=== PATIENT | female | born 2000 | race Caucasian/White ===

== ENCOUNTER 2018-03-26 08:49 | Emergency (ER) | payer MEDICAID ==
[~2018-03-26] VITALS: Ht 167.6 cm; Wt 42.7 kg
[~2018-03-26 08:49] MED LIST: ARIP10TA9 PO; CEPH-357 PO; HYDR-3686 PO; MIRT15TA PO
[2018-03-26] MEDS ORDERED: acetaminophen 325mg tablet PO ONE (09:10)
[2018-03-26] MEDS ORDERED: dicyclomine 10 MG capsule PO ONE (09:10)
[2018-03-26 09:50] LABS: CLARITY,URINE CLEAR (Clear); COLOR,URINE YELLOW (Yellow); GLUCOSE, URINE NEGATIVE (Neg); KETONES,URINE NEGATIVE (Neg); LEUKOCYTE ESTERASE ,URINE NEGATIVE (Neg); NITRITES, URINE NEGATIVE (Neg); OCCULT BLOOD,URINE SMALL (Neg); PH,URINE 6.5 (4.8-8.0); PROTEIN,URINE NEGATIVE (Neg); UROBILINOGEN,URINE 0.2 E.U/dL (0.2-1.0)
[2018-03-26 09:52] LABS: URINE HCG NEGATIVE (NEG)
[2018-03-26 09:54] LABS: UA COLLECTION TYPE CLN CATCH MIDSTREAM
[2018-03-26 09:56] LABS: BACTERIA,URINE FEW /HPF (Neg); MUCUS STRANDS FEW /LPF (Neg); SQUAMOUS EPITHELIAL CELL,UR FEW /LPF (FEW); WBC,URINE 0-4 /HPF (0-4)
[2018-03-26 10:11] VITALS: BP 120/70
== END 2018-03-26 10:12 | disposition home or self-care (01) ==
LOC: ER 08:50
DX: R10.31 Right lower quadrant pain (principal); R10.32 Left lower quadrant pain; G89.29 Other chronic pain; F12.90 Cannabis use, unspecified, uncomplicated; F15.90 Other stimulant use, unspecified, uncomplicated; Z79.899 Other long term (current) drug therapy
CPT/HCPCS: 76856; 81001; 81025; 99285

== ENCOUNTER 2019-05-23 14:16 | Emergency (ER) | payer MEDICAID ==
[~2019-05-23] VITALS: Ht 167.6 cm; Wt 38.0 kg
[2019-05-23 14:18] VITALS: BP 121/66
[2019-05-23] MEDS ORDERED: levetiracetam-NS 1000mg/100ml 100 ML IV ONE (14:40)
[2019-05-23 15:09] LABS: BASOPHILS % (AUTO) 0.4 % (0-1); EOSINOPHILS # (AUTO) 0.1 X10'3 (0-0.9); EOSINOPHILS % (AUTO) 1.6 % (0-6); HEMATOCRIT 40.2 % (35.0-45.0); HEMOGLOBIN 13.5 g/dl (12.0-16.0); LYMPHOCYTES # (AUTO) 2.3 X10'3 (1.1-4.8); LYMPHOCYTES % (AUTO) 26.5 % (21-51); MEAN CORPUSCULAR HEMOGLOBIN 29.7 PG (27.0-31.0); MEAN CORPUSCULAR HGB CONC 33.5 g/dL (33.0-36.5); MEAN CORPUSCULAR VOLUME 88.6 FL (78-98); MEAN PLATELET VOLUME 7.3 FL (7.4-10.4); MONOCYTES # (AUTO) 0.4 X10'3 (0-0.9); MONOCYTES % (AUTO) 4.9 % (2-12); NEUTROPHILS # (AUTO) 5.7 X10'3 (1.8-7.7); NEUTROPHILS % (AUTO) 66.6 % (42-75); PLATELET COUNT 289 X10'3 (140-440); RED BLOOD COUNT 4.53 X10'6 (4.20-5.60); RED CELL DISTRIBUTION WIDTH 13.1 % (11.5-14.5); WHITE BLOOD COUNT 8.6 X10'3 (4.5-11.0)
[2019-05-23 15:21] LABS: ALANINE AMINOTRANSFERASE 19 U/L (12-78); ALBUMIN 4.3 G/DL (3.4-5.0); ALBUMIN/GLOBULIN RATIO 1.3 (1.1-1.5); ALKALINE PHOSPHATASE 60 IU/L (20-180); ANION GAP 10 (8-16); ASPARTATE AMINO TRANSFERASE 17 U/L (10-37); BILIRUBIN,TOTAL 0.3 MG/DL (0.1-1.0); BLOOD UREA NITROGEN 11 MG/DL (7-18); BUN/CREATININE RATIO 13.8 (6.6-38.0); CALCIUM 8.5 MG/DL (8.5-10.1); CHLORIDE 107 MMOL/L (99-107); ETHANOL < 0.010 GM/DL (0.0-0.010); GLUCOSE 93 MG/DL (70-104); MAGNESIUM 1.8 MG/DL (1.5-2.4); POTASSIUM 3.5 MMOL/L (3.5-5.1); SODIUM 142 MMOL/L (135-145); TOTAL CARBON DIOXIDE 24.9 MMOL/L (24-32); TOTAL PROTEIN 7.5 G/DL (6.4-8.2); eGFR > 90 ML/MIN
[2019-05-23 15:42] LABS: CLARITY,URINE CLEAR (Clear); COLOR,URINE YELLOW (Yellow); GLUCOSE, URINE NEGATIVE (Neg); KETONES,URINE NEGATIVE (Neg); LEUKOCYTE ESTERASE ,URINE NEGATIVE (Neg); NITRITES, URINE NEGATIVE (Neg); OCCULT BLOOD,URINE NEGATIVE (Neg); PH,URINE 5.5 (4.8-8.0); PROTEIN,URINE NEGATIVE (Neg); UROBILINOGEN,URINE 0.2 E.U/dL (0.2-1.0)
[2019-05-23 15:43] LABS: URINE HCG NEGATIVE (NEG)
[2019-05-23 15:45] LABS: UA COLLECTION TYPE CLN CATCH MIDSTREAM
[2019-05-23 15:47] LABS: URINE AMPHETAMINE SCREEN NEGATIVE (Neg); URINE BARBITUATE SCREEN NEGATIVE (Neg); URINE BENZODIAZEPINES SCREEN NEGATIVE (Neg); URINE CANNABINOID SCREEN POSITIVE (Neg); URINE COCAINE SCREEN NEGATIVE (Neg); URINE METHADONE SCREEN NEGATIVE (Neg); URINE OPIATE SCREEN NEGATIVE (Neg); URINE PHENCYCLIDINE SCREEN NEGATIVE (Neg)
[2019-05-23] MEDS ORDERED: KEP500T PO (15:53)
[2019-05-23] MEDS ORDERED: levetiracetam inj 1,000 MG in normal saline 100ml IV soln 90 ML IV SCH (20:00)
== END 2019-05-23 16:17 | disposition home or self-care (01) ==
LOC: ER 14:17
DX: G40.909 Epilepsy, unspecified, not intractable, without status epilepticus (principal); F12.90 Cannabis use, unspecified, uncomplicated; F15.90 Other stimulant use, unspecified, uncomplicated; F17.200 Nicotine dependence, unspecified, uncomplicated; Z79.899 Other long term (current) drug therapy
CPT/HCPCS: 36415; 70450; 71045; 80053; 80305; 80320; 81003; 81025; 83735; 84100; 85025; 93005; 96374; 99284; J1953

== ENCOUNTER 2020-03-27 11:27 | Emergency (ER) | payer MEDICAID ==
[~2020-03-27] VITALS: Ht 167.6 cm; Wt 43.2 kg
[~2020-03-27 11:27] MED LIST changes: +KEP500T PO
[2020-03-27] MEDS ORDERED: diphenhydrAMINE 50 mg/ml inj IM ONE (11:55)
[2020-03-27] MEDS ORDERED: proCHLORperazine 10 MG/2 ml inj IM ONE (11:55)
--- NOTE | 2020-03-27 12:03 | NUR ---
ASKED PT WHY SHE WAS SCREAMING. SHE SAID" THATS WHAT I DO WHEN I HAVE PAIN AND NOT MEDICATION FOR MY NAUSE". I EXPLAINED TO HER THAT SHE HAD SOME MEDICATION ORDERED, THAT WE WERE GETTING FOR HER, AND THAT SCREAMING WAS NOT HELPING HER OR OUR SITUATION. PT STATED " I HAVE AND ANXIETY ORDER YOU FUCKING BITCH, AND YOU SHOULD BE USED TO THIS AND CONTINUED TO SCREAM" "I ASKED HER IF SHE COULD PLEASE STOP SCREAMING AND ACT LIKE SHE WAS 19" PT. S HAD A HOLE LINE OF CUSING THAT INSUED. I WALKED AWAY FROM PT. I CLOSED HER DOORS IN BED 10
--- NOTE | 2020-03-27 12:20 | NUR ---
PT C/O NAUSEA AND AXITEY MEDICATED PER MD ORDERS WITH BENEDRYL AND COMPAZINE.
[2020-03-27 13:43] VITALS: BP 101/53
== END 2020-03-27 13:43 | disposition home or self-care (01) ==
LOC: ER 11:28
DX: F11.23 Opioid dependence with withdrawal (principal); R11.2 Nausea with vomiting, unspecified; F41.9 Anxiety disorder, unspecified; F12.90 Cannabis use, unspecified, uncomplicated; F15.90 Other stimulant use, unspecified, uncomplicated; Z72.89 Other problems related to lifestyle; Z86.69 Personal history of other diseases of the nervous system and sense organs; Z79.899 Other long term (current) drug therapy
CPT/HCPCS: 96372; 99284; J0780; J1200

== ENCOUNTER 2020-06-10 08:16 | Emergency (ER) | payer MEDICAID ==
[~2020-06-10] VITALS: Ht 167.6 cm; Wt 43.6 kg
[2020-06-10 08:19] VITALS: BP 105/60
[2020-06-10] MEDS ORDERED: normal saline 1000ML IV soln IVB ONE (08:25)
[2020-06-10] MEDS ORDERED: ondansetron/PF 4mg/2ml inj IV ONE (08:25)
[2020-06-10] MEDS ORDERED: ketorolac tromethamine 15mg/ml inj. IV ONE (08:30)
[2020-06-10 08:39] LABS: BASOPHILS % (AUTO) 0.3 % (0-1); EOSINOPHILS # (AUTO) 0.1 X10'3 (0-0.9); EOSINOPHILS % (AUTO) 0.8 % (0-6); HEMATOCRIT 40.3 % (35.0-45.0); HEMOGLOBIN 13.5 g/dl (12.0-16.0); LYMPHOCYTES # (AUTO) 1.3 X10'3 (1.1-4.8); LYMPHOCYTES % (AUTO) 12.9 % (21-51); MEAN CORPUSCULAR HEMOGLOBIN 29.9 PG (27.0-31.0); MEAN CORPUSCULAR HGB CONC 33.6 g/dL (33.0-36.5); MEAN CORPUSCULAR VOLUME 88.9 FL (78-98); MEAN PLATELET VOLUME 7.4 FL (7.4-10.4); MONOCYTES # (AUTO) 0.6 X10'3 (0-0.9); MONOCYTES % (AUTO) 5.3 % (2-12); NEUTROPHILS # (AUTO) 8.4 X10'3 (1.8-7.7); NEUTROPHILS % (AUTO) 80.7 % (42-75); PLATELET COUNT 286 X10'3 (140-440); RED BLOOD COUNT 4.53 X10'6 (4.20-5.60); RED CELL DISTRIBUTION WIDTH 12.7 % (11.5-14.5); WHITE BLOOD COUNT 10.5 X10'3 (4.5-11.0)
[2020-06-10 09:03] LABS: ALANINE AMINOTRANSFERASE 17 U/L (12-78); ALBUMIN 3.8 G/DL (3.4-5.0); ALBUMIN/GLOBULIN RATIO 1.2 (1.1-1.5); ALKALINE PHOSPHATASE 72 IU/L (46-116); ANION GAP 12 (8-16); ASPARTATE AMINO TRANSFERASE 17 U/L (10-37); BILIRUBIN,TOTAL 0.4 MG/DL (0.1-1.0); BLOOD UREA NITROGEN 12 MG/DL (7-18); BUN/CREATININE RATIO 15.2 (6.6-38.0); CALCIUM 9.4 MG/DL (8.5-10.1); CHLORIDE 102 MMOL/L (99-107); CREATININE 0.79 MG/DL (0.40-0.90); GLUCOSE 116 MG/DL (70-104); LIPASE 73 U/L (73-393); POTASSIUM 3.2 MMOL/L (3.5-5.1); SODIUM 140 MMOL/L (135-145); TOTAL CARBON DIOXIDE 26.3 MMOL/L (24-32); eGFR > 90 ML/MIN
--- NOTE | 2020-06-10 09:03 | NUR ---
MOTHER CALLED AND STATES THAT PATIENT HAD IMPLANT IN ARM FOR CONTROL THAT WAS RECALLED AND REMOVED 1.5 YEARS AGO. PATIENT WAS REGULARLY TAKING NORCO AT THAT TIME AND THEN RECENTLY PLACED ON SUBOXONE. MOTHER STATES SHE CONTINUES TO HAVE ABDOMINAL PAIN.
[2020-06-10] MEDS ORDERED: HYDROcodone/acetaminophen 10/325mg tab PO ONE (09:40)
[2020-06-10] MEDS ORDERED: ONDA4TAB6 PO (09:41)
[2020-06-10] MEDS ORDERED: HYDR-4353 PO (09:41)
== END 2020-06-10 10:44 | disposition home or self-care (01) ==
LOC: ER 08:16
DX: N83.209 Unspecified ovarian cyst, unspecified side (principal); F41.9 Anxiety disorder, unspecified; F12.90 Cannabis use, unspecified, uncomplicated; F15.90 Other stimulant use, unspecified, uncomplicated; Z86.69 Personal history of other diseases of the nervous system and sense organs; Z79.2 Long term (current) use of antibiotics; Z79.899 Other long term (current) drug therapy
CPT/HCPCS: 36415; 76830; 76856; 80053; 83690; 85025; 93976; 96361; 96374; 96375; 99284; J1885; J2405; J7030

== ENCOUNTER 2020-07-04 04:40 | Emergency (ER) | payer MEDICAID ==
[~2020-07-04] VITALS: Ht 167.6 cm; Wt 40.0 kg
[~2020-07-04 04:40] MED LIST changes: +ONDA4TAB6 PO
--- NOTE | 2020-07-04 04:41 | NUR ---
PT'S MOTHER-MIKKI- CALLED FOR AN UPDATE- LET PRIMARY RN KNOW-NUMBER IS [phone]
[2020-07-04] MEDS ORDERED: ketorolac trometh. 30mg/ml inj. IV ONE (04:50)
[2020-07-04] MEDS ORDERED: acetaminophen 325mg tablet PO ONE (04:50)
[2020-07-04] MEDS ORDERED: metoclopramide 5 mg/ml inj IV ONE (04:50)
[2020-07-04 05:07] LABS: CLARITY,URINE CLEAR (Clear); COLOR,URINE YELLOW (Yellow); GLUCOSE, URINE NEGATIVE (Neg); KETONES,URINE NEGATIVE (Neg); LEUKOCYTE ESTERASE ,URINE NEGATIVE (Neg); NITRITES, URINE NEGATIVE (Neg); OCCULT BLOOD,URINE TRACE-INTACT (Neg); PROTEIN,URINE NEGATIVE (Neg); UROBILINOGEN,URINE 0.2 E.U/dL (0.2-1.0)
[2020-07-04 05:08] LABS: UA COLLECTION TYPE CLN CATCH MIDSTREAM; URINE HCG NEGATIVE (NEG)
[2020-07-04 05:14] LABS: SQUAMOUS EPITHELIAL CELL,UR MODERATE /LPF (FEW)
[2020-07-04 05:15] LABS: BACTERIA,URINE FEW /HPF (Neg); RBC,URINE 0-2 /HPF (0-2); WBC,URINE 0-4 /HPF (0-4)
[2020-07-04 05:23] LABS: URINE AMPHETAMINE SCREEN NEGATIVE (Neg); URINE BARBITUATE SCREEN NEGATIVE (Neg); URINE BENZODIAZEPINES SCREEN POSITIVE (Neg); URINE CANNABINOID SCREEN POSITIVE (Neg); URINE COCAINE SCREEN NEGATIVE (Neg); URINE METHADONE SCREEN NEGATIVE (Neg); URINE OPIATE SCREEN NEGATIVE (Neg); URINE PHENCYCLIDINE SCREEN NEGATIVE (Neg)
[2020-07-04 05:40] LABS: BASOPHILS % (AUTO) 0.4 % (0-1); EOSINOPHILS # (AUTO) 0.3 X10'3 (0-0.9); EOSINOPHILS % (AUTO) 3.3 % (0-6); HEMATOCRIT 39.1 % (35.0-45.0); HEMOGLOBIN 12.9 g/dl (12.0-16.0); LYMPHOCYTES # (AUTO) 2.7 X10'3 (1.1-4.8); LYMPHOCYTES % (AUTO) 34.6 % (21-51); MEAN CORPUSCULAR HEMOGLOBIN 29.7 PG (27.0-31.0); MEAN CORPUSCULAR HGB CONC 33.1 g/dL (33.0-36.5); MEAN CORPUSCULAR VOLUME 89.8 FL (78-98); MEAN PLATELET VOLUME 7.5 FL (7.4-10.4); MONOCYTES # (AUTO) 0.6 X10'3 (0-0.9); MONOCYTES % (AUTO) 7.5 % (2-12); NEUTROPHILS # (AUTO) 4.2 X10'3 (1.8-7.7); NEUTROPHILS % (AUTO) 54.2 % (42-75); PLATELET COUNT 260 X10'3 (140-440); RED BLOOD COUNT 4.35 X10'6 (4.20-5.60); RED CELL DISTRIBUTION WIDTH 13.1 % (11.5-14.5); WHITE BLOOD COUNT 7.7 X10'3 (4.5-11.0)
[2020-07-04 05:51] LABS: ALANINE AMINOTRANSFERASE 17 U/L (12-78); ALBUMIN 3.8 G/DL (3.4-5.0); ALBUMIN/GLOBULIN RATIO 1.3 (1.1-1.5); ALKALINE PHOSPHATASE 68 IU/L (46-116); ANION GAP 6 (8-16); ASPARTATE AMINO TRANSFERASE 19 U/L (10-37); BILIRUBIN,TOTAL 0.3 MG/DL (0.1-1.0); BLOOD UREA NITROGEN 9 MG/DL (7-18); BUN/CREATININE RATIO 10.3 (6.6-38.0); CHLORIDE 107 MMOL/L (99-107); CREATININE 0.87 MG/DL (0.40-0.90); GLUCOSE 86 MG/DL (70-104); POTASSIUM 3.7 MMOL/L (3.5-5.1); SODIUM 140 MMOL/L (135-145); TOTAL CARBON DIOXIDE 27.2 MMOL/L (24-32); TOTAL PROTEIN 6.7 G/DL (6.4-8.2); eGFR 81 ML/MIN
[2020-07-04] MEDS ORDERED: MELO-100 PO (05:57)
--- NOTE | 2020-07-04 05:58 | NUR ---
PATIENT VERBALIZED AUTHORIZATION TO SPEAK WITH MOTHER REGARDING HER CONDITION AND MEDICAL CARE
[2020-07-04 05:59] LABS: BETA HCG,QUANTITATIVE 3 mIU/ml; LIPASE 67 U/L (73-393)
--- NOTE | 2020-07-04 06:18 | NUR ---
spa technician at bedside.
[2020-07-04] MEDS ORDERED: normal saline 1000ML IV soln IVB ONE (06:40)
[2020-07-04] MEDS ORDERED: methylnaltrexone br 12mg/0.6ml inj***SubQ only SQ ONE (06:40)
[2020-07-04] MEDS ORDERED: METO-292 PO (06:47)
[2020-07-04 07:07] VITALS: BP 99/60
== END 2020-07-04 07:10 | disposition home or self-care (01) ==
LOC: ER 04:40
DX: N83.209 Unspecified ovarian cyst, unspecified side (principal); K59.00 Constipation, unspecified; F41.9 Anxiety disorder, unspecified; F12.90 Cannabis use, unspecified, uncomplicated; F15.90 Other stimulant use, unspecified, uncomplicated; Z72.89 Other problems related to lifestyle; Z86.69 Personal history of other diseases of the nervous system and sense organs
CPT/HCPCS: 36415; 76830; 76856; 80053; 80305; 81001; 81025; 83690; 84702; 85025; 93976; 96372; 96374; 96375; 99285; J1885; J2212; J2765

== ENCOUNTER 2020-07-11 06:14 | Emergency (ER) | payer MEDICAID ==
[~2020-07-11] VITALS: Ht 167.6 cm; Wt 40.0 kg
[~2020-07-11 06:14] MED LIST changes: +MELO-100 PO; +METO-292 PO
[2020-07-11] MEDS ORDERED: LORazepam 2 mg/ml vial IV ONE (06:45)
[2020-07-11] MEDS ORDERED: haloperidol lactate 5mg/ml inj IM ONE (06:45)
[2020-07-11] MEDS ORDERED: normal saline 1000ML IV soln IVB ONE (06:45)
[2020-07-11 06:48] LABS: BASOPHILS # (AUTO) 0.1 X10'3 (0-0.2); BASOPHILS % (AUTO) 0.8 % (0-1); EOSINOPHILS # (AUTO) 0.2 X10'3 (0-0.9); EOSINOPHILS % (AUTO) 2.4 % (0-6); HEMOGLOBIN 13.9 g/dl (12.0-16.0); LYMPHOCYTES % (AUTO) 40.9 % (21-51); MEAN CORPUSCULAR HEMOGLOBIN 30.3 PG (27.0-31.0); MEAN CORPUSCULAR HGB CONC 33.8 g/dL (33.0-36.5); MEAN CORPUSCULAR VOLUME 89.4 FL (78-98); MEAN PLATELET VOLUME 7.4 FL (7.4-10.4); MONOCYTES # (AUTO) 0.8 X10'3 (0-0.9); MONOCYTES % (AUTO) 7.8 % (2-12); NEUTROPHILS # (AUTO) 4.7 X10'3 (1.8-7.7); NEUTROPHILS % (AUTO) 48.1 % (42-75); PLATELET COUNT 292 X10'3 (140-440); RED BLOOD COUNT 4.59 X10'6 (4.20-5.60); RED CELL DISTRIBUTION WIDTH 12.8 % (11.5-14.5); WHITE BLOOD COUNT 9.8 X10'3 (4.5-11.0)
[2020-07-11 07:04] LABS: ALANINE AMINOTRANSFERASE 15 U/L (12-78); ALBUMIN 3.9 G/DL (3.4-5.0); ALBUMIN/GLOBULIN RATIO 1.2 (1.1-1.5); ALKALINE PHOSPHATASE 76 IU/L (46-116); ANION GAP 7 (8-16); ASPARTATE AMINO TRANSFERASE 12 U/L (10-37); BILIRUBIN,TOTAL 0.2 MG/DL (0.1-1.0); BLOOD UREA NITROGEN 11 MG/DL (7-18); BUN/CREATININE RATIO 12.6 (6.6-38.0); CHLORIDE 102 MMOL/L (99-107); CREATININE 0.87 MG/DL (0.40-0.90); GLUCOSE 92 MG/DL (70-104); LIPASE 95 U/L (73-393); MAGNESIUM 1.9 MG/DL (1.5-2.4); PHOSPHORUS 3.7 MG/DL (2.3-4.5); POTASSIUM 3.5 MMOL/L (3.5-5.1); SODIUM 137 MMOL/L (135-145); TOTAL PROTEIN 7.1 G/DL (6.4-8.2); eGFR 81 ML/MIN
[2020-07-11 07:47] VITALS: BP 94/59
== END 2020-07-11 08:09 | disposition home or self-care (01) ==
LOC: ER 06:14
DX: R11.15 Cyclical vomiting syndrome unrelated to migraine (principal); R11.10 Vomiting, unspecified; F12.90 Cannabis use, unspecified, uncomplicated; F41.9 Anxiety disorder, unspecified; F15.90 Other stimulant use, unspecified, uncomplicated; Z72.89 Other problems related to lifestyle; Z86.69 Personal history of other diseases of the nervous system and sense organs; Z79.899 Other long term (current) drug therapy
CPT/HCPCS: 36415; 80053; 83690; 83735; 84100; 85025; 96361; 96372; 96374; 99284; J1630; J2060; J7030

== ENCOUNTER 2020-08-11 10:43 | Emergency (ER) | payer MEDICAID ==
[~2020-08-11] VITALS: Ht 167.6 cm; Wt 41.5 kg
[2020-08-11 12:07] LABS: CLARITY,URINE CLEAR (Clear); COLOR,URINE YELLOW (Yellow); GLUCOSE, URINE NEGATIVE (Neg); KETONES,URINE 15 mg/dl (Neg); LEUKOCYTE ESTERASE ,URINE NEGATIVE (Neg); NITRITES, URINE NEGATIVE (Neg); OCCULT BLOOD,URINE SMALL (Neg); PROTEIN,URINE NEGATIVE (Neg); URINE HCG NEGATIVE (NEG); UROBILINOGEN,URINE 0.2 E.U/dL (0.2-1.0)
[2020-08-11 12:08] LABS: UA COLLECTION TYPE CLN CATCH MIDSTREAM
[2020-08-11 12:17] LABS: BACTERIA,URINE FEW /HPF (Neg); MUCUS STRANDS FEW /LPF (Neg); RBC,URINE 0-2 /HPF (0-2); SQUAMOUS EPITHELIAL CELL,UR MODERATE /LPF (FEW); WBC,URINE 0-4 /HPF (0-4)
[2020-08-11 12:59] LABS: BASOPHILS % (AUTO) 0.4 % (0-1); EOSINOPHILS % (AUTO) 0.6 % (0-6); HEMATOCRIT 41.6 % (35.0-45.0); HEMOGLOBIN 14.1 g/dl (12.0-16.0); LYMPHOCYTES % (AUTO) 25.8 % (21-51); MEAN CORPUSCULAR HEMOGLOBIN 29.6 PG (27.0-31.0); MEAN CORPUSCULAR HGB CONC 33.8 g/dL (33.0-36.5); MEAN CORPUSCULAR VOLUME 87.5 FL (78-98); MEAN PLATELET VOLUME 7.6 FL (7.4-10.4); MONOCYTES # (AUTO) 0.6 X10'3 (0-0.9); MONOCYTES % (AUTO) 7.9 % (2-12); NEUTROPHILS % (AUTO) 65.3 % (42-75); PLATELET COUNT 299 X10'3 (140-440); RED BLOOD COUNT 4.76 X10'6 (4.20-5.60); WHITE BLOOD COUNT 7.7 X10'3 (4.5-11.0)
[2020-08-11 13:21] LABS: ALANINE AMINOTRANSFERASE 20 U/L (12-78); ALBUMIN 4.6 G/DL (3.4-5.0); ALBUMIN/GLOBULIN RATIO 1.2 (1.1-1.5); ALKALINE PHOSPHATASE 83 IU/L (46-116); ANION GAP 7 (8-16); ASPARTATE AMINO TRANSFERASE 19 U/L (10-37); BILIRUBIN,TOTAL 0.4 MG/DL (0.1-1.0); BLOOD UREA NITROGEN 17 MG/DL (7-18); BUN/CREATININE RATIO 18.9 (6.6-38.0); CALCIUM 9.8 MG/DL (8.5-10.1); CHLORIDE 105 MMOL/L (99-107); GLUCOSE 70 MG/DL (70-104); LIPASE 57 U/L (73-393); POTASSIUM 4.5 MMOL/L (3.5-5.1); SODIUM 141 MMOL/L (135-145); TOTAL PROTEIN 8.6 G/DL (6.4-8.2); eGFR 78 ML/MIN
[2020-08-11] MEDS ORDERED: ondansetron 4mg rapidly disintigrating tab PO ONE (13:55)
[2020-08-11] MEDS ORDERED: ketorolac trometh. 30mg/ml inj. IV ONE (13:55)
[2020-08-11 14:30] VITALS: BP 124/71
== END 2020-08-11 14:31 | disposition home or self-care (01) ==
LOC: ER 10:44
DX: S20.211A Contusion of right front wall of thorax, initial encounter (principal); M54.5 Low back pain; R11.0 Nausea; K59.00 Constipation, unspecified; F41.9 Anxiety disorder, unspecified; Z86.69 Personal history of other diseases of the nervous system and sense organs; Z98.890 Other specified postprocedural states; Z72.89 Other problems related to lifestyle; Z79.2 Long term (current) use of antibiotics; Z79.899 Other long term (current) drug therapy; W18.30XA Fall on same level, unspecified, initial encounter; Y93.89 Activity, other specified; Y92.89 Other specified places as the place of occurrence of the external cause; Y99.8 Other external cause status
CPT/HCPCS: 36415; 71045; 80053; 81001; 81025; 83690; 85025; 96374; 99284; J1885

== ENCOUNTER 2021-01-15 04:53 | Emergency (ER) | payer MEDICAID ==
[~2021-01-15] VITALS: Ht 167.6 cm; Wt 45.0 kg
[2021-01-15 05:25] LABS: BASOPHILS % (AUTO) 0.3 % (0-1); EOSINOPHILS # (AUTO) 0.2 X10'3 (0-0.9); EOSINOPHILS % (AUTO) 2.9 % (0-6); HEMOGLOBIN 13.6 g/dl (12.0-16.0); LYMPHOCYTES # (AUTO) 4.2 X10'3 (1.1-4.8); LYMPHOCYTES % (AUTO) 47.8 % (21-51); MEAN CORPUSCULAR HEMOGLOBIN 29.7 PG (27.0-31.0); MEAN CORPUSCULAR HGB CONC 33.1 g/dL (33.0-36.5); MEAN CORPUSCULAR VOLUME 89.6 FL (78-98); MEAN PLATELET VOLUME 7.5 FL (7.4-10.4); MONOCYTES # (AUTO) 0.6 X10'3 (0-0.9); MONOCYTES % (AUTO) 6.9 % (2-12); NEUTROPHILS # (AUTO) 3.7 X10'3 (1.8-7.7); NEUTROPHILS % (AUTO) 42.1 % (42-75); PLATELET COUNT 260 X10'3 (140-440); RED BLOOD COUNT 4.57 X10'6 (4.20-5.60); RED CELL DISTRIBUTION WIDTH 13.1 % (11.5-14.5); WHITE BLOOD COUNT 8.7 X10'3 (4.5-11.0)
[2021-01-15 05:26] LABS: ALANINE AMINOTRANSFERASE 10 U/L (12-78); ALBUMIN 3.6 G/DL (3.4-5.0); ALBUMIN/GLOBULIN RATIO 1.2 (1.1-1.5); ALKALINE PHOSPHATASE 54 IU/L (46-116); ANION GAP 6 (8-16); ASPARTATE AMINO TRANSFERASE 11 U/L (10-37); BILIRUBIN,TOTAL 0.2 MG/DL (0.1-1.0); BLOOD UREA NITROGEN 14 MG/DL (7-18); BUN/CREATININE RATIO 17.3 (6.6-38.0); CALCIUM 8.5 MG/DL (8.5-10.1); CHLORIDE 109 MMOL/L (99-107); CREATININE 0.81 MG/DL (0.40-0.90); GLUCOSE 92 MG/DL (70-104); LIPASE 65 U/L (73-393); POTASSIUM 3.7 MMOL/L (3.5-5.1); SODIUM 146 MMOL/L (135-145); TOTAL CARBON DIOXIDE 31.4 MMOL/L (24-32); TOTAL PROTEIN 6.6 G/DL (6.4-8.2); eGFR 88 ML/MIN
[2021-01-15 07:59] LABS: CLARITY,URINE CLOUDY (Clear); COLOR,URINE YELLOW (Yellow); GLUCOSE, URINE NEGATIVE (Neg); KETONES,URINE NEGATIVE (Neg); LEUKOCYTE ESTERASE ,URINE NEGATIVE (Neg); NITRITES, URINE NEGATIVE (Neg); OCCULT BLOOD,URINE SMALL (Neg); PH,URINE 8.5 (4.8-8.0); PROTEIN,URINE TRACE mg/dl (Neg); UROBILINOGEN,URINE 0.2 E.U/dL (0.2-1.0)
[2021-01-15 08:04] LABS: URINE HCG NEGATIVE (NEG)
[2021-01-15 08:05] LABS: SQUAMOUS EPITHELIAL CELL,UR MODERATE /LPF (FEW); UA COLLECTION TYPE CLN CATCH MIDSTREAM
[2021-01-15 08:06] LABS: AMORPHOUS PHOSPHATES 3+; BACTERIA,URINE 3+ /HPF (Neg)
[2021-01-15 08:07] LABS: RBC,URINE 0-2 /HPF (0-2); WBC,URINE 0-4 /HPF (0-4)
[2021-01-15 08:21] VITALS: BP 108/60
== END 2021-01-15 08:23 | disposition home or self-care (01) ==
LOC: ER 04:54
DX: R11.2 Nausea with vomiting, unspecified (principal); K59.00 Constipation, unspecified; R10.84 Generalized abdominal pain; F12.90 Cannabis use, unspecified, uncomplicated; F41.9 Anxiety disorder, unspecified; Z86.69 Personal history of other diseases of the nervous system and sense organs; Z72.89 Other problems related to lifestyle; Z79.899 Other long term (current) drug therapy
CPT/HCPCS: 36415; 80053; 81001; 81025; 83690; 85025; 99283

== ENCOUNTER → 2021-02-23 | Emergency (ER) | payer MEDICAID ==
[~2021-02-23] VITALS: Ht 167.6 cm; Wt 42.0 kg
[~2021-02-23] MED LIST changes: +CefTRIAXone 250MG IM Kit w/LIDOcaine IM ONE; +DOXY-1 PO; +LORazepam 0.5 MG tablet PO STA; +METR500T PO; +ONDA4TAB12 PO; +normal saline 1000ml 1,000 ML IV ONE; +ondansetron 4mg rapidly disintigrating tab PO ONE; +ondansetron/PF 4mg/2ml inj IV ONE
[2021-02-23 16:48] LABS: ALANINE AMINOTRANSFERASE 10 U/L (12-78); ALBUMIN/GLOBULIN RATIO 1.2 (1.1-1.5); ALKALINE PHOSPHATASE 69 IU/L (46-116); ANION GAP 8 (8-16); ASPARTATE AMINO TRANSFERASE 17 U/L (10-37); BILIRUBIN,TOTAL 0.5 MG/DL (0.1-1.0); BLOOD UREA NITROGEN 15 MG/DL (7-18); BUN/CREATININE RATIO 16.3 (6.6-38.0); CALCIUM 8.9 MG/DL (8.5-10.1); CHLORIDE 102 MMOL/L (99-107); CREATININE 0.92 MG/DL (0.40-0.90); GLUCOSE 90 MG/DL (70-104); LIPASE < 50 U/L (73-393); SODIUM 138 MMOL/L (135-145); TOTAL CARBON DIOXIDE 27.6 MMOL/L (24-32); TOTAL PROTEIN 7.3 G/DL (6.4-8.2); eGFR 76 ML/MIN
[2021-02-23 16:51] LABS: C-REACTIVE PROTEIN < 0.05 MG/DL (0.0-0.5)
--- NOTE | 2021-02-23 17:26 | NUR ---
Discussed difficulty in starting IVs w/ MODE Mullen. He will put in new orders for Zofran ODT and Ativan and then PO challenge to be attempted.
--- NOTE | 2021-02-23 17:30 | NUR ---
unable to get PIV access after 6 attempts by 3 rns. provider notified and ok no iv and to use oral fluids, po zofran and po ativan.
[2021-02-23 17:33] LABS: BASOPHILS % (AUTO) 0.5 % (0-1); EOSINOPHILS % (AUTO) 0.2 % (0-6); HEMATOCRIT 41.2 % (35.0-45.0); LYMPHOCYTES # (AUTO) 0.9 X10'3 (1.1-4.8); LYMPHOCYTES % (AUTO) 11.4 % (21-51); MEAN CORPUSCULAR HEMOGLOBIN 29.8 PG (27.0-31.0); MEAN CORPUSCULAR HGB CONC 34.1 g/dL (33.0-36.5); MEAN CORPUSCULAR VOLUME 87.4 FL (78-98); MEAN PLATELET VOLUME 7.8 FL (7.4-10.4); MONOCYTES # (AUTO) 0.3 X10'3 (0-0.9); MONOCYTES % (AUTO) 4.5 % (2-12); NEUTROPHILS # (AUTO) 6.5 X10'3 (1.8-7.7); NEUTROPHILS % (AUTO) 83.4 % (42-75); PLATELET COUNT 249 X10'3 (140-440); RED BLOOD COUNT 4.71 X10'6 (4.20-5.60); RED CELL DISTRIBUTION WIDTH 12.9 % (11.5-14.5); WHITE BLOOD COUNT 7.8 X10'3 (4.5-11.0)
--- NOTE | 2021-02-23 17:43 | NUR ---
ultrasound at bedside.
--- NOTE | 2021-02-23 17:45 | NUR ---
PATIENT DRANK 700 ML OF WATER
--- NOTE | 2021-02-23 17:49 | NUR ---
patient provided cup and wipes for clean catch urine
--- NOTE | 2021-02-23 18:21 | NUR ---
IN ROOM WITH MODE TOVAR FOR VAGINAL EXAM
[2021-02-23 18:22] LABS: URINE HCG NEGATIVE (NEG)
[2021-02-23 18:27] LABS: CLARITY,URINE SLIGHTLY CLOUDY (Clear); COLOR,URINE AMBER (Yellow); GLUCOSE, URINE NEGATIVE (Neg); KETONES,URINE >=80 mg/dl (Neg); LEUKOCYTE ESTERASE ,URINE NEGATIVE (Neg); NITRITES, URINE NEGATIVE (Neg); OCCULT BLOOD,URINE SMALL (Neg); PROTEIN,URINE NEGATIVE (Neg); UROBILINOGEN,URINE 0.2 E.U/dL (0.2-1.0)
[2021-02-23 18:30] LABS: UA COLLECTION TYPE CLN CATCH MIDSTREAM
[2021-02-23 18:34] LABS: BACTERIA,URINE 2+ /HPF (Neg); RBC,URINE 0-2 /HPF (0-2); WBC,URINE 0-4 /HPF (0-4)
[2021-02-23 18:35] LABS: MUCUS STRANDS MANY /LPF (Neg); SQUAMOUS EPITHELIAL CELL,UR MANY /LPF (FEW)
[2021-02-23 19:28] VITALS: BP 107/54
== END | disposition home or self-care (01) ==
LOC: ER 14:10
DX: N73.0 Acute parametritis and pelvic cellulitis (principal); K59.00 Constipation, unspecified; F41.9 Anxiety disorder, unspecified; F12.90 Cannabis use, unspecified, uncomplicated; Z86.69 Personal history of other diseases of the nervous system and sense organs; Z72.89 Other problems related to lifestyle; Z79.899 Other long term (current) drug therapy
CPT/HCPCS: 36415; 76856; 80053; 81001; 81025; 83690; 85025; 85651; 86140; 87210; 87491; 87591; 93976; 96372; 99285; J0696

== ENCOUNTER 2022-07-04 13:54 | Emergency (ER) | payer MEDICAID ==
[~2022-07-04] VITALS: Ht 167.6 cm; Wt 42.5 kg
[~2022-07-04 13:54] MED LIST changes: -CefTRIAXone 250MG IM Kit w/LIDOcaine IM ONE; -DOXY-1 PO; -LORazepam 0.5 MG tablet PO STA; -METR500T PO; -normal saline 1000ml 1,000 ML IV ONE; -ondansetron 4mg rapidly disintigrating tab PO ONE; -ondansetron/PF 4mg/2ml inj IV ONE
[2022-07-04] MEDS ORDERED: metoclopramide 5 mg/ml inj IV ONE (15:10)
[2022-07-04] MEDS ORDERED: ringers solution, lacted 1,000 ML IV ONE (15:10)
[2022-07-04 15:37] LABS: BASOPHILS % (AUTO) 0.1 % (0-1); EOSINOPHILS % (AUTO) 0 % (0-6); HEMATOCRIT 40.9 % (35.0-45.0); HEMOGLOBIN 13.9 g/dl (12.0-16.0); LYMPHOCYTES # (AUTO) 0.7 X10'3 (1.1-4.8); LYMPHOCYTES % (AUTO) 5.7 % (21-51); MEAN CORPUSCULAR HEMOGLOBIN 29.9 PG (27.0-31.0); MEAN CORPUSCULAR HGB CONC 34.1 g/dL (33.0-36.5); MEAN CORPUSCULAR VOLUME 87.8 FL (78-98); MEAN PLATELET VOLUME 7.7 FL (7.4-10.4); MONOCYTES # (AUTO) 0.3 X10'3 (0-0.9); MONOCYTES % (AUTO) 2.3 % (2-12); NEUTROPHILS # (AUTO) 11.8 X10'3 (1.8-7.7); NEUTROPHILS % (AUTO) 91.9 % (42-75); PLATELET COUNT 287 X10'3 (140-440); RED BLOOD COUNT 4.66 X10'6 (4.20-5.60); RED CELL DISTRIBUTION WIDTH 13.2 % (11.5-14.5); WHITE BLOOD COUNT 12.8 X10'3 (4.5-11.0)
[2022-07-04 15:48] LABS: ALANINE AMINOTRANSFERASE 16 U/L (12-78); ALBUMIN 4.6 G/DL (3.4-5.0); ALBUMIN/GLOBULIN RATIO 1.5 (1.1-1.5); ALKALINE PHOSPHATASE 57 IU/L (46-116); ANION GAP 15 (8-16); ASPARTATE AMINO TRANSFERASE 15 U/L (10-37); BILIRUBIN,TOTAL 0.4 MG/DL (0.1-1.0); BLOOD UREA NITROGEN 17 MG/DL (7-18); BUN/CREATININE RATIO 18.9 (6.6-38.0); CHLORIDE 101 MMOL/L (99-107); GLUCOSE 73 MG/DL (70-104); LIPASE < 50 U/L (73-393); POTASSIUM 3.5 MMOL/L (3.5-5.1); SODIUM 140 MMOL/L (135-145); TOTAL CARBON DIOXIDE 24.1 MMOL/L (24-32); TOTAL PROTEIN 7.7 G/DL (6.4-8.2); eGFR 77 ML/MIN
[2022-07-04 17:30] LABS: COLOR,URINE YELLOW (Yellow); GLUCOSE, URINE NEGATIVE (Neg); KETONES,URINE >=80 mg/dl (Neg); LEUKOCYTE ESTERASE ,URINE NEGATIVE (Neg); NITRITES, URINE NEGATIVE (Neg); OCCULT BLOOD,URINE TRACE-INTACT (Neg); PH,URINE 5.5 (4.8-8.0); PROTEIN,URINE NEGATIVE (Neg); UROBILINOGEN,URINE 0.2 E.U/dL (0.2-1.0)
[2022-07-04 17:31] LABS: CLARITY,URINE SLIGHTLY CLOUDY (Clear); UA COLLECTION TYPE CLN CATCH MIDSTREAM; URINE HCG NEGATIVE (NEG)
[2022-07-04 17:34] LABS: BACTERIA,URINE 2+ /HPF (Neg); MUCUS STRANDS MODERATE /LPF (Neg); RBC,URINE 0-2 /HPF (0-2); SQUAMOUS EPITHELIAL CELL,UR FEW /LPF (FEW); TRANSITIONAL EPI CELLS,URINE FEW /HPF; WBC,URINE 0-4 /HPF (0-4)
[2022-07-04 17:59] VITALS: BP 128/86
== END 2022-07-04 18:05 | disposition home or self-care (01) ==
LOC: ER 13:54
DX: R10.31 Right lower quadrant pain (principal); R11.2 Nausea with vomiting, unspecified; K59.00 Constipation, unspecified; F41.9 Anxiety disorder, unspecified; F12.90 Cannabis use, unspecified, uncomplicated; Z86.69 Personal history of other diseases of the nervous system and sense organs; Z72.89 Other problems related to lifestyle; Z60.2 Problems related to living alone; Z79.2 Long term (current) use of antibiotics; Z79.899 Other long term (current) drug therapy
CPT/HCPCS: 36415; 74018; 80053; 81001; 81025; 83690; 85025; 96361; 96374; 99285; J2765; J7120

== ENCOUNTER 2023-12-10 05:59 | Emergency (ER) | payer MEDICAID ==
[2023-12-10] MEDS ORDERED: proCHLORperazine 10 MG/2 ml inj ONE (07:24)
[2023-12-10] MEDS: LORazepam 2 mg/ml vial ONE (07:27)
[2023-12-10 07:39] VITALS: BP 113/75; PULSE 81; RESP 16; TEMP 98; O2SAT 100
[2023-12-10] MEDS ORDERED: LORazepam 2 mg/ml vial IV ONE (08:05)
[2023-12-10] MEDS ORDERED: proCHLORperazine 10 MG/2 ml inj IV ONE (08:05)
[2023-12-10] MEDS ORDERED: normal saline 1000ml 2,000 ML IV ONE (08:05)
[2023-12-10] MEDS ORDERED: normal saline 1000ml 1,000 ML IV SCH (08:09)
[2023-12-10 08:25] LABS: BILIRUBIN,URINE NEGATIVE (Neg); CLARITY,URINE TURBID (Clear); COLOR,URINE YELLOW (Yellow); GLUCOSE, URINE NEGATIVE (Neg); KETONES,URINE >=80 mg/dl (Neg); LEUKOCYTE ESTERASE ,URINE NEGATIVE (Neg); NITRITES, URINE NEGATIVE (Neg); OCCULT BLOOD,URINE TRACE-INTACT (Neg); PROTEIN,URINE 30 mg/dl (Neg); URINE HCG NEGATIVE (NEG)
[2023-12-10 08:36] LABS: UA COLLECTION TYPE CLN CATCH MIDSTREAM
[2023-12-10 08:37] LABS: MUCUS STRANDS MANY /LPF (Neg); SQUAMOUS EPITHELIAL CELL,UR MANY /LPF (FEW)
[2023-12-10 08:39] LABS: AMORPHOUS PHOSPHATES 1+; BACTERIA,URINE 1+ /HPF (Neg)
[2023-12-10 09:28] LABS: URINE AMPHETAMINE SCREEN NEGATIVE (Neg); URINE BARBITUATE SCREEN NEGATIVE (Neg); URINE BENZODIAZEPINES SCREEN NEGATIVE (Neg); URINE CANNABINOID SCREEN POSITIVE (Neg); URINE COCAINE SCREEN NEGATIVE (Neg); URINE METHADONE SCREEN NEGATIVE (Neg); URINE OPIATE SCREEN NEGATIVE (Neg); URINE PHENCYCLIDINE SCREEN NEGATIVE (Neg)
[2023-12-10 09:54] LABS: ALANINE AMINOTRANSFERASE 12 U/L (12-78); ALBUMIN 3.7 G/DL (3.4-5.0); ALBUMIN/GLOBULIN RATIO 1.3 (1.1-1.5); ALKALINE PHOSPHATASE 40 IU/L (46-116); ANION GAP 12 (8-16); ASPARTATE AMINO TRANSFERASE 20 U/L (10-37); BILIRUBIN,TOTAL 0.3 MG/DL (0.1-1.0); BLOOD UREA NITROGEN 8 MG/DL (7-18); BUN/CREATININE RATIO 9.4 (10.0-20.0); CALCIUM 8.4 MG/DL (8.5-10.1); CHLORIDE 107 MMOL/L (99-107); CREATININE 0.85 MG/DL (0.40-0.90); GLUCOSE 94 MG/DL (70-104); LIPASE 20 U/L (16-77); SODIUM 139 MMOL/L (135-145); TOTAL CARBON DIOXIDE 19.7 MMOL/L (24-32); TOTAL PROTEIN 6.5 G/DL (6.4-8.2); eGFR 81 ML/MIN
[2023-12-10 10:04] LABS: POTASSIUM 4.2 MMOL/L (3.5-5.1)
== END 2023-12-10 09:37 | disposition left against medical advice (07) ==
LOC: ER 06:00
DX: F41.9 Anxiety disorder, unspecified (principal); R10.13 Epigastric pain; F12.90 Cannabis use, unspecified, uncomplicated; Z79.899 Other long term (current) drug therapy; Z79.2 Long term (current) use of antibiotics
CPT/HCPCS: 36415; 80053; 80305; 81001; 81025; 83690; 99284; J0780; J2060

== ENCOUNTER 2025-09-01 19:57 | Emergency (ER) | payer MEDICAID ==
[~2025-09-01] VITALS: Ht 170.2 cm; Wt 53.0 kg
[~2025-09-01 19:57] MED LIST changes: +ONDA-243 PO; -ONDA4TAB12 PO
[2025-09-01 20:36] VITALS: BP 131/83; PULSE 96; RESP 15; O2SAT 99
[2025-09-01 21:40] LABS: CREATININE 0.57 MG/DL (0.40-0.90); TOTAL CARBON DIOXIDE 18.5 MMOL/L (24-32); eCRCL 124 ML/MIN; eGFR > 90 ML/MIN
[2025-09-01 22:29] LABS: MEAN PLATELET VOLUME 7.3 FL (7.4-10.4); RED CELL DISTRIBUTION WIDTH 15.7 % (11.5-14.5)
[2025-09-01] MEDS: ondansetron/PF 4mg/2ml inj IV ONE (22:58)
[2025-09-01] MEDS: normal saline 1000ML IV soln IV ONE (23:38)
--- NOTE | 2025-09-02 00:24 | Physician Documentation ---
History of Present Illness ~ Chief Complaint: Abdominal Pain w/vomiting Stated Complaint: N/V, 30 WEEKS Time Seen by MD: 21:44 Primary Medical Doctor: COLTON FRAGA HPI Patient is a 25-year-old female that presents to the emergency department for 3 days of nausea vomiting. Patient is a reports he has been unable to keep anything down including liquids. Patient reports that she has tried taking Zofran at home without success. Patient reports that she takes Klonopin for seizures and anxiety smokes marijuana on occasion. Patient reports that her anxiety is heightened due to not being able to take her Klonopin for the last couple of days. Patient reports her baby is moving she does not have any cramping any abnormal vaginal bleeding is not concerned about her at this time. Patient reports previous previous episodes of nausea and vomiting but that they are not usually this bad. Patient denies fever chills diarrhea at this time. No other symptoms reported at this time. Medication Reconciliation Allergies: Coded Allergies: No Known Allergies (Unverified , 12/10/23) Scheduled Aripiprazole (Abilify), 10 MG PO DAILY, (Reported) Cephalexin Monohydrate (Cephalexin), 500 MG PO DAILY, (Reported) Hydroxyzine Hcl* (Atarax*), 25 MG PO DAILY, (Reported) Levetiracetam (Keppra), 1 TAB PO Q12H Meloxicam* (Meloxicam*), 1 TAB PO DAILY Metoclopramide HCl (Reglan), 1 TAB PO Q6H Mirtazapine (Mirtazapine), 15 MG PO DAILY, (Reported) ONDANSETRON ODT 4mg tablet (Ondansetron Odt), 1 TABLET PO Q6H Ondansetron Hcl (Zofran), 1 TAB PO Q8H Past Medical History Past Medical History: Seizures, Constipation, Inflammatory Bowel Dz, *RENAL/*, *PSYCH*, Anxiety Past Surgical History: no surgical history Smoking Status: Current every day smoker Alcohol Use: Sober Drug Use: marijuana Lives with: Alone Lives In: Homeless Past Social History: 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 Physical Exam Vital Signs: Heart Rate: 96, Respiratory Rate: 15, BP: 131/83, Pulse Oximetry: 99, Weight: 53.000 Physical Exam VITALS: Reviewed and as above. GENERAL: Alert, no apparent distress. HEENT: Normocephalic, atraumatic, PERRL, EOMI, dry mucosa, no erythema RESPIRATORY: Lungs clear, normal breath sounds, no respiratory distress. CHEST: No accessory muscle use, no retractions CV: Regular rate, rhythm, no edema, no murmur, No: JVD GI: Soft, non-tender, bowels sounds present, no rebound, guarding, or rigidity BACK: No CVA tenderness, or swelling MUSCULOSKELETAL No deformities, no edema SKIN: Warm and dry, no rash NEURO: Oriented x4, No motor or sensory deficit PSYCH: Normal mood and affect, no agitation Progress Results/Orders Results/Orders Orders - RC PEÑA DO Covid19 Binax Poc Result Entry (09/01/25 20:43) Influenza Type A&B Rapid Test (09/01/25 20:43) Completed Orders - RC PEÑA DO Hcg, Ur Ql (09/01/25 20:43) BMP (09/01/25 20:43) Lipase (09/01/25 20:43) CMP (09/01/25 20:43) Ua W/Microscopic, Cult If Ind (09/01/25 23:40) Metoclopramide Inj (Reglan Inj) (09/02/25 00:45) Medications Received in ER Medications (Trade) Dose Ordered Sig/Stas Route PRN Reason Start Time Stop Time Status Last Admin Dose Admin (Zofran 4mg/2ml vial) 4 mg ONCE ONCE IV 09/01/25 22:25 09/01/25 22:26 DC 09/01/25 22:58 4 MG (0.9% sodium chloride (NS) 1000ml IV soln) 1,000 ml ONCE ONCE IV 09/01/25 23:10 09/01/25 23:12 DC 09/01/25 23:38 1,000 ML (klonoPIN 0.5mg tablet) 0.5 mg BID PO 09/01/25 23:17 09/01/25 23:18 DC 09/01/25 23:44 0.5 MG (Reglan inj) 10 mg ONCE ONCE IV 09/02/25 00:45 09/02/25 00:46 DC 09/02/25 00:58 10 MG Vital Signs 09/01/25 20:36 Pulse 96 Resp 15 B/P (MAP) 131/83 Pulse Ox 99 Laboratory Tests Test 09/01/25 21:11 09/01/25 22:22 09/01/25 23:40 CBC Comment Sodium Level 135 Potassium Level 4.1 Chloride Level 103 Carbon Dioxide Level 18.5 L Anion Gap 14 Blood Urea Nitrogen 9 Creatinine 0.57 Estimated GFR/1.73 m2 > 90 BUN/Creatinine Ratio 15.8 Glucose Level 121 H Calcium Level 8.3 L Total Bilirubin 0.7 Aspartate Amino Transf (AST/SGOT) 22 Alanine Aminotransferase (ALT/SGPT) 11 L Alkaline Phosphatase 104 Total Protein 7.4 Albumin 3.3 L Globulin 4.1 Albumin/Globulin Ratio 0.8 L Lipase 13 L Chemistry Comments White Blood Count 10.5 Red Blood Count 3.99 L Hemoglobin 10.8 L Hematocrit 32.9 L Mean Corpuscular Volume 82.4 Mean Corpuscular Hemoglobin 27.1 Mean Corpuscular Hemoglobin Concent 32.9 L Red Cell Distribution Width 15.7 H Platelet Count 300 Mean Platelet Volume 7.3 L Neutrophils (%) (Auto) 83.3 H Lymphocytes (%) (Auto) 10.6 L Monocytes (%) (Auto) 5.9 Eosinophils (%) (Auto) 0.1 Basophils (%) (Auto) 0.1 Neutrophils # (Auto) 8.8 H Lymphocytes # (Auto) 1.1 Monocytes # (Auto) 0.6 Eosinophils # (Auto) 0.0 Basophils # (Auto) 0.0 Urine Specimen Description Cln catch midstream Urine Color Yellow Urine Clarity Clear Urine pH 6.0 Urine Specific [place] >=1.030 Urine Protein 100 H Urine Glucose (UA) Negative Urine Ketones >=80 Urine Occult Blood Small Urine Nitrite Negative Urine Bilirubin Small Urine Urobilinogen 0.2 Urine Leukocyte Esterase Negative Urine RBC 3-10 Urine WBC 5-10 H Urine Squamous Epithelial Cells Many Urine Bacteria 1+ Urine Mucus Many Urine Culture Indicated Rejected for culture Volume Urine Centrifuged 10 ml Urine HCG, Qualitative Positive Urine Comment Medical Decision Making Findings Assessment and Diagnosis This is a 25-year-old female presenting with hyperemesis gravidarum, characterized by 3 days of persistent nausea and vomiting with inability to tolerate oral intake. Hyperemesis gravidarum affects 0.3-3% of pregnancies and is defined by severe protracted nausea and vomiting associated with weight loss (>5%), dehydration, and electrolyte imbalance. The patient has failed outpatient management with oral ondansetron and has not responded to two doses of intravenous ondansetron (specific dose not documented) in the emergency department despite adequate hydration with 2 liters of intravenous fluids. Differential Diagnosis The primary diagnosis is hyperemesis gravidarum. Alternative diagnoses including biliary pathology, hepatobiliary disorders, multiple or molar pregnancies, and other gastrointestinal causes were considered but are less likely given the clinical presentation. Ultrasound evaluation may be considered if symptoms persist to exclude multiple or molar pregnancies and rule out hepatobiliary, vascular, or renal explanations such as gallstones or portal vein thrombosis. Treatment Plan and Clinical Reasoning Given the patient's failure to respond to first-line ondansetron therapy, escalation to second-line antiemetic therapy is indicated per [place] [employer] guidelines. Intravenous metoclopramide is the appropriate next step as a dopamine (D2) receptor antagonist for patients with persistent symptoms. In a randomized study comparing promethazine and metoclopramide in hospitalized hyperemesis gravidarum patients, both drugs demonstrated similar efficacy with no difference in episodes of vomiting (median 1 for metoclopramide vs 2 for promethazine, p=0.81) or nausea scores (median 2 vs 2, p=0.99) after 24 hours. However, metoclopramide was associated with less drowsiness, dizziness, dystonia, and fewer discontinuations due to adverse events compared to promethazine. Additionally, no increased risk of congenital defects has been reported with metoclopramide. Discharge Planning with Promethazine Suppositories Promethazine is recommended as a first-line pharmacologic antiemetic therapy by the [place] [employer] and has favorable safety profiles. The suppository formulation is particularly suitable given the patient's inability to tolerate oral intake and provides an alternative route of administration for home management. Promethazine and metoclopramide have demonstrated similar efficacy in treating hyperemesis gravidarum symptoms. Critical Safety Considerations for Seizure History The patient's history of seizures treated with clonazepam requires careful consideration and represents a significant clinical concern that necessitates enhanced monitoring and patient counseling. Promethazine, as a phenothiazine, may lower seizure threshold and should be used with caution in patients with seizure disorders or in those using concomitant medications that may affect seizure threshold. Additionally, the combination of clonazepam and promethazine carries risk of potentiated DIRECTOR TRUST depression, as the DIRECTOR TRUST-depressant action of benzodiazepines may be amplified by phenothiazines including promethazine. Promethazine may lead to potentially fatal respiratory depression and should be avoided in patients with compromised respiratory function. The patient must be counseled regarding: Increased risk of sedation and drowsiness Potential for respiratory depression Possible lowering of seizure threshold Need to avoid driving or operating machinery Importance of monitoring for any neurologic symptoms Instructions to discontinue promethazine and seek immediate medical attention if seizure activity occurs or if excessive sedation develops Drug-induced extrapyramidal adverse effects may occur with both phenothiazines (including promethazine) and metoclopramide, and the medication should be withdrawn if the patient reports such symptoms. Monitoring and Follow-Up The patient requires close outpatient follow-up within 24-48 hours to assess response to therapy. Thiamine supplementation should be initiated if not already started to prevent Wernicke encephalopathy and refeeding syndrome, with dosing of 100 mg daily for a minimum of 7 days followed by 50 mg daily maintenance until adequate oral intake is established. Electrolyte abnormalities including hyponatremia, hypokalemia, and hypomagnesemia should be monitored and corrected as needed. If the patient remains unable to tolerate oral intake after metoclopramide administration or if symptoms persist despite promethazine suppositories, hospitalization for continued intravenous therapy and monitoring will be necessary rather than continued outpatient management. Outpatient or day-care management is feasible and acceptable for [id number] hyperemesis gra vidarum and does not result in worse outcomes compared with inpatient care, but only when patients can maintain adequate hydration. Alternative Therapies if Treatment Fails For severe refractory cases not responding to metoclopramide and promethazine, a lternative pharmacotherapeutics include mirtazapine, olanzapine, gabapentin, or corticosteroids. Mirtazapine acts on multiple receptor systems (noradrenergic, serotonergic, histaminergic, and muscarinic) to produce antiemetic, anxiolytic, and appetite-stimulating effects and is not associated with increased risk of defects. Methylprednisolone 16 mg intravenous every 8 hours for up to 3 days can be given as a last resort in patients with severe hyperemesis gravidarum, though it should be administered with caution in the first trimester due to possible slight increase in cleft palate risk when given before 10 weeks of gestation. If weight loss and symptoms persist with prolonged inability to tolerate oral intake, enteral or parenteral nutrition may be required. Risk-Benefit Analysis The benefits of treating hyperemesis gravidarum with metoclopramide and promethazine outweigh the risks in this clinical scenario, despite the patient's seizure disorder. Early treatment of hyperemesis gravidarum is not usually associated with major adverse maternal or outcomes when managed appropriately. The risks of untreated hyperemesis gravidarum include dehydration, electrolyte deficiencies (hyponatremia, hypokalemia, hypomagnesemia), severe nutritional deficiencies, renal impairment, and significant maternal morbidity. However, the patient's seizure disorder and concurrent clonazepam therapy require enhanced monitoring for DIRECTOR TRUST depression and potential seizure threshold lowering. The decision to proceed with this treatment plan has been made after careful consideration of these risks, with appropriate patient counseling and close follow-up arrangements to ensure patient safety. Disposition The patient will be discharged home with promethazine suppositories for ongoing symptom management, with strict return precautions for worsening symptoms, inability to tolerate oral intake, signs of dehydration, seizure activity, or excessive sedation. Close outpatient follow-up has been arranged within 24-48 hours to reassess clinical status and response to therapy. Diff Dx GI Bleed:Consideration: Include: AE fistula, Angiodysplasia, Bleeding diathesis, Blood loss anemia, Carcinoma, Diverticulosis, Diverticulitis, Esophageal varicies, Esophagitis, Gastritis, Gastroenteritis, Inflammatory BD, Evette-Ny syndrome, Meckel's diverticulum, PUD, Other Diff Dx Pain:Considerations: Include: AAA, -Complete, - Incomplete, -Inevitable, -Missed, -Threatened, Abruptio placentae, Angina/MT, Aortic dissection, Appendicitis, Bowel obstruction, Cholangitis, Cholecystitis, Cholelithasis, Constipation, Diverticular disease, Dysmenorrhea, Ectopic , Esophageal rupture, Esophagitis, Gastritis/PUD, Gastroenteritis, GI hemorrhage, Hernia, Hepatitis, Inflammatory BD, Ischemic bowel, Mass, Ovarian cyst/torsion, Pancreatitis, PID, Porphyria, Trauma, intraabdominal, Urinary obstruction, Urinary tract infection, Urolithiasis, Other Diff Dx N/V/D:Considerations: Include: Appendicitis, Bowel obstruction, Dehydration, DKA, Diarrhea - bacterial, Diarrhea - parasitic, Diarrhea - viral, Diverticulitis, Diverticulosis, Drug toxicity, Electrolyte imbalance, Food poisoning, Gastroenteritis, GE reflux, GI bleed, Hepatitis, Hernia, Hypovolemia, Hypotension, Inflammatory BD, Impaction, Malnutrition, Pancreatitis, , PUD, Renal failure, Urolithiasis, Urinary obstruction, UTI, Other Diff Dx Rectal:Considerations: Include: Fissure, Fistula, Foreign body, Impaction, Perirectal abscess, Rectal prolapse, Subcutaneous abscess, Thrombosed hemorrhoid, Ulcer, UTI, Other Departure Disposition: 01 HOME / SELF CARE / HOMELESS Impression: Primary Impression: Hyperemesis gravidarum Condition: Improved Discharge Instructions: Nausea and Vomiting, Adult Referrals: NO PRIMARY CARE PROVIDER (PCP) Education Educated: Patient Educated regarding: diagnosis, treatment, need for follow up Additional Comment Additional Comment Date: Sep 02, 2025 Time: 01:40 Additional note by Rc Peña DO: I took over the care of this patient from previous physician. I reviewed any previous notes available, obtain my own history, review of systems and physical examination was performed by myself. This young lady has been signed out for treatment of hyperemesis gravidarum. Zofran did not help significantly. She did however keep down her clonazepam. She received Reglan and feeling markedly better. Fluids has been finished. Physical examination: GENERAL: Awake, alert, oriented, GCS 15, no apparent distress, non-toxic appearing, answers questions, follows commands appropriately. Seen in RAP room HEENT: Atraumatic, normocephalic, pupils equal, extraocular muscles intact Active gross movements, sclerae anicteric, mucus membranes moist, no stridor. NECK: Midline, no JVD CARDIOVASCULAR: Good skin perfusion without evidence of pallor, mottling. PULMONARY: Nonlabored, symmetric chest rise, no audible wheezing, no accessory muscle use, no respiratory distress, speaking in full sentences. GASTROINTESTINAL: Not distended. NEUROLOGIC: Lucid with normal mental status. Normal facial symmetry. Moves all extremities symmetrically and with purpose. No truncal ataxia. Speech is fluid without evidence of dysarthria or aphasia, no focal deficits appreciated. EXTREMITIES: Acute deformities Skin: warm, dry PSYCHIATRIC: Normal affect, normal insight, normal concentration. Focused exam: [] Hemodynamics reviewed. The patient is not febrile, not tachycardic, no evidence of hypotension respiratory distress. CBC normal except for mild anemia. Chemistry shows normal renal function. Normal lipase. UA is questionable with a positive for UTI. However it is contaminated. Given the fact that she is , we will wait for culture. Patient is hemodynamically stable for discharge home with follow with their primary care provider. [ ] Specific and cautious return precautions provided and discussed with full understanding. Any incidental findings were also discussed and follow up recommendations given. [] All questions answered. Patient/family were able to verbalize back return precautions. Patient/family agree to plan. Copies of imaging and laboratory studies were provided. Signature Scribe Signature: No scribe Attestation: The note accurately reflects work and decisions made by me.Rc Peña DO 09/02/25 01:43 SARAH VERGARAP Sep 02, 2025 00:24 RC PEÑA DO Sep 02, 2025 01:43
[2025-09-02 00:29] LABS: LEUKOCYTE ESTERASE ,URINE NEGATIVE (Neg); NITRITES, URINE NEGATIVE (Neg); OCCULT BLOOD,URINE SMALL (Neg)
[2025-09-02 00:30] LABS: URINE HCG POSITIVE (NEG)
[2025-09-02 00:34] LABS: UA COLLECTION TYPE CLN CATCH MIDSTREAM
[2025-09-02 00:35] LABS: MUCUS STRANDS MANY /LPF (Neg); SQUAMOUS EPITHELIAL CELL,UR MANY /LPF (FEW)
[2025-09-02] MEDS: metoclopramide 5 mg/ml inj IV ONE (00:58)
[2025-09-02] MEDS ORDERED: ONDA-243 PO (01:52)
== END 2025-09-02 01:54 | disposition home or self-care (01) ==
LOC: ER 19:58
DX: O21.0 Mild hyperemesis gravidarum (principal); O99.333 Smoking (tobacco) complicating pregnancy, third trimester; F17.200 Nicotine dependence, unspecified, uncomplicated; F12.90 Cannabis use, unspecified, uncomplicated; F41.9 Anxiety disorder, unspecified; Z3A.30 30 weeks gestation of pregnancy; Z59.00 Homelessness unspecified
CPT/HCPCS: 36415; 80053; 81001; 81025; 83690; 85025; 96361; 96374; 96375; 99284; J2405; J2765; J7030